=== PATIENT | female | born 1955 | race Caucasian/White ===

== ENCOUNTER → 2016-06-01 | Outpatient (CLI) | payer OTHER ==
[~2016-06-01] MED LIST: ALBUAER19 INH; ATV1 PO; CETI10TA84 PO; CICL160A INH; CYCL10TA6 PO; CYM30 PO; IPRASOL4 INH; NYSS/ MT; POLY335019 PO; PSEU120T2 PO; UMEC1INH INH
[2016-06-01 13:03] LABS: BLOOD UREA NITROGEN 15 mg/dl (7-18); BUN/CREATININE RATIO 16.6 (10-20); CALCIUM 8.8 mg/dl (8.5-10.1); CARBON DIOXIDE 30 mmol/L (21-32); CHLORIDE 104 mmol/L (98-107); CHOLESTEROL 237 mg/dl (0-200); CREATININE 0.93 mg/dl (0.60-1.20); GLUCOSE 105 mg/dl (70-99); SODIUM 139 mmol/L (136-145); TRIGLYCERIDES 212 mg/dl (0-150); VERY LOW DENSITY LIPOPROT CALC 42 mg/dl
[2016-06-01 13:06] LABS: CHOLESTEROL/HDL RATIO 5.4; HDL CHOLESTEROL 44 mg/dl; LDL CHOLESTEROL CALCULATED 151 mg/dl
== END | disposition home or self-care (01) ==
LOC: C.LABBFT 09:53
PROVIDERS: ATTEND Family Medicine
DX: R63.5 Abnormal weight gain (principal); E78.5 Hyperlipidemia, unspecified

== ENCOUNTER → 2016-06-18 | Outpatient (CLI) | payer OTHER ==
--- NOTE | 2016-06-20 01:46 | PULMONARY FUNCTION TEST ---
INTERPRETATION Spirometry: FEV1/FVC ratio at 65. Suggest obstructive ventilatory disease but FEV1 at 88% notes mild obstruction. Lung volumes: Within normal limits. Diffusion capacity: Within normal limits.
== END | disposition home or self-care (01) ==
LOC: C.RC 10:43
PROVIDERS: ATTEND Internal Medicine Critical Care Medicine
DX: C34.91 Malignant neoplasm of unspecified part of right bronchus or lung (principal); J42 Unspecified chronic bronchitis; Z87.09 Personal history of other diseases of the respiratory system

== ENCOUNTER → 2016-06-25 | Outpatient (CLI) | payer OTHER | END | disposition home or self-care (01) | LOC: C.MAMM 10:20 | PROVIDERS: ATTEND Family Medicine | DX: M81.0 Age-related osteoporosis without current pathological fracture (principal); M85.851 Other specified disorders of bone density and structure, right thigh; M85.852 Other specified disorders of bone density and structure, left thigh ==

== ENCOUNTER → 2016-08-05 | Outpatient (CLI) | payer OTHER ==
--- NOTE | 2016-08-06 13:18 | MAMMOGRAPHY REPORT ---
BILATERAL DIGITAL SCREENING MAMMOGRAM TOMOSYNTHESIS WITH CAD: 08/05/2016 CLINICAL HISTORY: Routine screening. TECHNIQUE: Breast tomosynthesis in addition to standard 2D mammography was performed. Current study was also evaluated with a Computer Aided Detection (CAD) system. COMPARISON: Comparison is made to exams dated: 10/21/2012 mammogram, 12/15/2010 mammogram, 12/06/2009 [facility], 05/25/2008, and 11/26/2006. BREAST COMPOSITION: There are scattered areas of fibroglandular density in both breasts. FINDINGS: The parenchymal pattern is similar to prior exams. No developing mass, architectural dis tortion or cluster of suspicious microcalcifications is seen in either breast. IMPRESSION: ACR BI-RADS CATEGORY 2: BENIGN There is no mammographic evidence of malignancy. A 1 year screening mammogram is recommended. The p atient will receive written notification of the results. Approximately 10% of breast cancers are not detected with mammography. A negative mammographic repor t should not delay biopsy if a clinically suggestive mass is present. Jocelyn Zavaleta M.D. ay/:08/05/2016 17:12:51 Manager Cardiac Cath: Hetal COTTON(R)(M), [facility] letter sent: Normal 1/2 BI-RADS Code: ACR BI-RADS Category 2: Benign
== END | disposition home or self-care (01) ==
LOC: C.MAMM 15:10
PROVIDERS: ATTEND Family Medicine
DX: Z12.31 Encounter for screening mammogram for malignant neoplasm of breast (principal)

== ENCOUNTER → 2016-08-11 | Outpatient (CLI) | payer OTHER ==
--- NOTE | 2016-08-11 14:41 | DIAGNOSTIC IMAGING REPORT ---
CHEST CT WITHOUT CONTRAST CT DOSE: 230.22 mGycm HISTORY: Pulmonary nodule X TECHNIQUE: Multiaxial CT images of the chest were performed without contrast. COMPARISON: 02/14/2016 FINDINGS: Unchanged exam compared to the prior study. Postoperative changes are again noted. Micronodularity right lung base is nonprogressive. There are no new or interval findings. There is no significant hilar or mediastinal adenopathy. IMPRESSION: Unchanged evaluation of the chest with unchanging postoperative changes as well as stable minimal right basilar micronodularity. A 6-9 month follow-up is suggested Electronically signed by: Rajinder Bearden M.D. 08/11/2016 2:40 PM Dictated Date/Time: 08/11/2016 2:36 PM
== END | disposition home or self-care (01) ==
LOC: C.CTS 14:03
PROVIDERS: ATTEND Surgery
DX: C34.91 Malignant neoplasm of unspecified part of right bronchus or lung (principal)

== ENCOUNTER → 2016-10-02 | Outpatient (CLI) | payer OTHER ==
[2016-10-02 17:27] LABS: BLOOD UREA NITROGEN 22 mg/dl (7-18)
== END | disposition home or self-care (01) ==
LOC: C.LABBC 14:34
PROVIDERS: ATTEND Psychiatry & Neurology Neurology
DX: Z00.00 Encounter for general adult medical examination without abnormal findings (principal)

== ENCOUNTER → 2016-10-05 | Outpatient (CLI) | payer OTHER ==
[~2016-10-05] MED LIST changes: +GADAVIST IV PRN
--- NOTE | 2016-10-05 15:39 | DIAGNOSTIC IMAGING REPORT ---
MRI OF THE BRAIN COMBO CLINICAL HISTORY: Dyspnea. COMPARISON STUDY: CT of the brain dated 05/30/2010. TECHNIQUE: MRI of the brain was performed utilizing various T1 and T2-weighted sequences in the axial, sagittal, and coronal planes. Contrast-enhanced sequences were acquired following the administration of 7 cc of Gadavist. FINDINGS: Brain parenchyma: There is mild subcortical and periventricular microangiopathic disease. There is no hemorrhage or mass effect. There is no restricted diffusion to suggest acute ischemia. No enhancing mass lesion is identified on the postcontrast images. Larry-white matter differentiation is preserved. No extra-axial fluid collection is seen. Minimal cerebellar tonsillar ectopia is noted. Ventricles, sulci, and cisterns: Normal in configuration. Pituitary and sella: Unremarkable. Intracranial vasculature: Normal flow voids are maintained at the skull base. Orbits: The bony orbits are grossly intact. Orbital contents are normal in appearance. Sinuses and mastoids: Clear. Calvarium: Unremarkable. Cervical cord: Partially visualized cervical spinal cord is normal in morphology and signal intensity. IMPRESSION: No acute intracranial abnormality. Electronically signed by: Sandor Britton M.D. 10/05/2016 3:37 PM Dictated Date/Time: 10/05/2016 3:24 PM
== END | disposition home or self-care (01) ==
LOC: C.MRI 14:20
PROVIDERS: ATTEND Psychiatry & Neurology Neurology
DX: R06.00 Dyspnea, unspecified (principal)

== ENCOUNTER → 2016-12-03 | Outpatient (CLI) | payer OTHER ==
[~2016-12-03] VITALS: Ht 154.9 cm; Wt 75.5 kg
[~2016-12-03] MED LIST changes: -GADAVIST IV PRN
[2016-12-03 15:08] VITALS: BP 127/84; PULSE 112; Ht 154.9 cm; Wt 75.5 kg
== END | disposition home or self-care (01) ==
LOC: C.NEUR 14:53
PROVIDERS: ATTEND Internal Medicine Pulmonary Disease
DX: G47.33 Obstructive sleep apnea (adult) (pediatric) (principal); G47.19 Other hypersomnia

== ENCOUNTER → 2016-12-22 | Outpatient (CLI) | payer OTHER ==
--- NOTE | 2016-12-22 10:52 | DIAGNOSTIC IMAGING REPORT ---
LEFT VENOUS DOPP LOWER EXT UNILAT CLINICAL HISTORY: 61 years-old Female presenting with DVT, PRIMARY CA RT LUNG. TECHNIQUE: Real-time grayscale and color and spectral Doppler ultrasound imaging of the veins of the left lower extremity was performed. Compression and augmentation were also utilized. COMPARISON: None. FINDINGS: Left: Common femoral vein: Patent. Femoral vein: Patent. Greater saphenous vein: Patent. Popliteal vein: Patent. Calf veins: Patent. Other: None. IMPRESSION: No evidence of deep venous thrombosis. Electronically signed by: Jermain Braxton M.D. 12/22/2016 10:50 AM Dictated Date/Time: 12/22/2016 10:50 AM
== END | disposition home or self-care (01) ==
LOC: C.ULTR 10:21
PROVIDERS: ATTEND Internal Medicine Critical Care Medicine
DX: C34.91 Malignant neoplasm of unspecified part of right bronchus or lung (principal); I82.409 Acute embolism and thrombosis of unspecified deep veins of unspecified lower extremity

== ENCOUNTER → 2016-12-30 | Outpatient (CLI) | payer OTHER ==
--- NOTE | 2016-12-31 06:13 | PAP/PSG TECHNICIAN REPORT ---
[facility] Powered Bridge Specialist Polysomnogram Report Study name: None Report date: 12/31/2016 Study date: 12/30/2016 Referring Physician: Dr. Spain Name: ADITI LUCIANO Interpreting Physician: Dion Allen M.D. Date of : 1955 Powered Bridge Specialist: Tyler Rabago RPSGT. Sex: Female Age: 61 StudyType: PSG Weight: 166 lbs Height: 61 years, Height 5' 1" BMI: 31.36 Medications: AERO CHAMBER PLUS, CALCIUM 600 MG, CYCLOBENZAPRINE HCL 10 MG, CYMBALTA 30 MG, FISH OIL, IPRATROPIUM-ALBUTEROL 0.5-2.5, LORAZEPAM 1 MG Patient History PATIENT HAS HISTORY OF EXHAUSTION, DAYTIME SLEEPINESS AND SNORING. SHE SAID THAT SHE USUALLY TAKES SEVERAL NAPS DURING THE DAY. SHE IS HERE TODAY FOR AN EVALUATION FOR ASHLEY. ESS = 12 RM 6 Parameters Monitored NPSG: E1-M2, E2-M1, Fp1-M2, Fp2-M1, F3-M2, F4-M2, F4-M1, C3-M2, C4-M2, C4-M1, O1-M2, O2-M2, O2-M1, T3-M2, T4-M1, P3-M2, P4-M1, CHIN1, CHIN2, HR, EKG, Legs, PFLOW, SNOR, FLOW, CFLOW, Tidal Volume, THOR, ABDO, SpO2, PLTH, CPRESS, ETCO2 Wave, ETCO2, pH Sleep Architecture Sleep Stages Time at Lights Off 10:27:30 PM STAGES Time (min.) TST (%) Time at Lights On 5:50:00 AM Wake 34.5 -- Total Recording Time (TRT) 443.00 min. N1 24.0 6 Total Sleep Period (TSP) 431.0 min. N2 303.5 74 Total Sleep Time (TST) 408.0min. N3 80.5 20 Awake Time 34.5 min. REM 0.0 0 Wake after Sleep Onset 23.0 min. Sleep Efficiency (SE) 92 % Sleep Onset Latency (GUTIERREZ) 11.5 min. Number of Stage 1 Shifts None Awakenings 23 Stage Changes 95 Number of REM periods N/A REM 0.0 0 REM Latency NONE min. NREM 408.0 100 Body Position Analysis Supine Right Left Side Prone Vertical Total Sleep Time (min.) 442.5 0.0 0.0 0.00 0.0 0.0 Total Sleep Time (%) 100% 0% 0% 0 0% N/A% Total Sleep Time REM (min.) 0.0 0.0 0.0 None 0.0 0.0 Total Sleep Time NREM (min.) 408.0 0.0 0.0 None 0.0 0.0 Intermittent Wake (min.) 34.5 0.0 0.0 None 0.0 0.0 Total Sleep Period (%) 100% None None None None None Arousals Myoclonus (PLM) * Events Count Index Events Count Index Spontaneous 25 4 Events Awake (PLMW) 23 40.0 Respiratory 2 0.3 Events Asleep w/ Arousal (PLMA) 14 2.1 PLM 13 2 Events Asleep w/o Arousal (PLMS) 156 22.9 Snoring 13 2 Total Asleep 170 25.0 Total 52 8 Total 193 26 Respiratory Analysis * CA OA MA CH H RERA Total Count 0 0 0 0 20 1 20 Index 0.0 0.0 0.0 0 2.9 0 3.1 Mean Duration 0.0 0.0 0.0 0.00 15.8 16.0 15.8 Longest Duration 0.0 0.0 0.0 0.00 0.0 16.0 27.6 Respiratory Event Summary Total Supine ~Supine Right Left Prone REM NREM Apneas Count 0 0 N/A N/A N/A N/A N/A 0 Index 0.0 0 N/A N/A N/A N/A N/A 0 Hypopneas (4% Desat) Count 20 20 N/A N/A N/A N/A N/A 20 Index 2.9 2.9 N/A N/A N/A N/A N/A 2.9 Apneas & All Hypopneas Count 20 20 N/A N/A N/A N/A N/A 20 Index 2.9 3 N/A N/A N/A N/A N/A 2.9 Respiratory Events (Actuarial Consultant+All Hyp+RERA) Count 20 21 N/A N/A N/A N/A N/A 20 Index 3.1 3 N/A N/A N/A N/A N/A 3.1 Respiratory Related Arousal Count 2 21 N/A N/A N/A N/A N/A 2 Index 0.3 0 N/A N/A N/A N/A N/A 0 Snoring Analysis Supine Right Left Prone REM NREM Total Snore duration 75.4 min Snores count 3,340 N/A N/A N/A N/A 3,340 3,340 Snore mean duration 1.4 Sec Snores index 491 N/A N/A N/A N/A 491.2 491.2 TST with snoring (%) 18.5% Desaturation Event Summary: Minimum %SpO2 Event Count Mean/Min/Max Duration(sec.) Desaturation Index % Time In Bed > 90 20 22.7 / 10.0 / 56.5 11.0 24.5 86 - 90 6 23.0 / 10.5 / 43.4 1.1 75.5 81 - 85 0 N/A 0.0 0.0 76 - 80 0 N/A 0.0 0.0 71 - 75 0 N/A 0.0 0.0 66 - 70 0 N/A 0.0 0.0 61 - 65 0 N/A 0.0 0.0 56 - 60 0 N/A 0.0 0.0 51 - 55 0 N/A 0.0 0.0 < 50 0 N/A 0.0 0.0 Total REM NREM Awake <50% 0.0 min. 0.0 min. 0.0 min. 0.0 min. 51 - 60% 0.0 min. 0.0 min. 0.0 min. 0.0 min. 61 - 70% 0.0 min. 0.0 min. 0.0 min. 0.0 min. 71 - 80% 0.0 min. 0.0 min. 0.0 min. 0.0 min. 81 - 90% 333.9 min. 0.0 min. 313.9 min. 20.0 min. 91 - 100% 108.6 min. 0.0 min. 94.1 min. 14.5 min. Average 90 0 90 90 Minimum SpO2 86 N/A 86 86 Desaturation Event Index 3.0 0.0 3.2 0.0 # Desat. Events below 89% 11 N/A 11 N/A Time(%) with Saturation below 89% 17.7 0.0 16.1 1.6 Time(min.) with Saturation below 89% 78.5 0.0 71.3 7.2 Time (mins) REM (mins) NREM (mins) % of TST SpO2 Below 90% 20 N/A N20 45.6 SpO2 Below 88% 5 0 0 6 Heart Rate Analysis Min (bpm) Max (bpm) Average (bpm) Awake 65 89 76 NREM 63 86 72 REM N/A N/A N/A Overall 63 86 72 Supplemental O2 Values Minimum O2 level: None Value Start Time End Time Powered Bridge Specialist Comments Ms. Luciano slept in the supine positions. No cardiac arrhythmia noted. Leg movements noted. No bruxism noted. Snoring was noted and scored as a 4 on a scale of 1 through 5. (0=no snoring, 5=snoring loud enough to be heard through a closed door or down the [address]ers way) Ms. Donaldson awoke to use the restroom 0 times during the night. Ms. Luciano stated I slept as well as I do when I am in my own bed. No REM noted. The final report will be interpreted and signed by a sleep physician. The completed physician report will then be placed in the patient medical record. Therapy (cm H2O) 0 TIB (min.) 442.5 TST (min.) 408.0 Sleep Onset (min.) 11.5 REM Onset From Sleep (min.) NONE Sleep Efficiency % 92 Wakefulness (%) 8 Wakefulness (min.) 34.5 NREM 1 (%) 6 NREM 1 (min.) 24.0 NREM 2 (%) 74 NREM 2 (min.) 303.5 NREM 3 (%) 20 NREM 3 (min.) 80.5 REM (%) 0 REM (min.) 0.0 # Arousals 52 Arousal Index 8 # Snore 3,340 Snore Index 491.2 AHI 2.9 AHI Supine 3 AHI Non-Supine N/A NREM AHI 2.9 REM AHI N/A RDI 3.1 # Obstructive Apnea 0 # Central Apnea 0 # Mixed Apnea 0 # Hypopneas 20 RERAs 1 Total Respiratory Events 23 Time Below SpO2 89% (min.) 71.3 Mean NREM SpO2 (%) 90 Mean REM SpO2 (%) N/A Mean Sleep SpO2 (%) 90 Min NREM SpO2 (%) 86 Min REM SpO2 (%) N/A Position Supine (min.) 442.5 Position Non-supine (min.) 0.0 LM Index Sleep 25.0 LM Index NREM 25.0 LM Index REM N/A Mean Heart Rate (bpm) 72 Min Heart Rate (bpm) 63
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
== END | disposition home or self-care (01) ==
LOC: C.NEUR 20:00
PROVIDERS: ATTEND Internal Medicine Pulmonary Disease
DX: G47.33 Obstructive sleep apnea (adult) (pediatric) (principal)

== ENCOUNTER → 2017-01-01 | Outpatient (CLI) | payer OTHER ==
[2017-01-01 12:48] LABS: HEMATOCRIT 43.4 % (37-47); MEAN CELL VOLUME 90.8 fL (80-100); MEAN CORPUSCULAR HEMOGLOBIN 30.1 pg (25-34); MEAN CORPUSCULAR HGB CONC 33.2 g/dl (32-36); MEAN PLATELET VOLUME 10.1 fL (7.4-10.4); PLATELET COUNT 284 K/uL (130-400); RED BLOOD COUNT 4.78 M/uL (4.2-5.4); WHITE BLOOD COUNT 6.84 K/uL (4.8-10.8)
[2017-01-01 12:57] LABS: ALT/SGPT 43 U/L (12-78); BLOOD UREA NITROGEN 11 mg/dl (7-18); BUN/CREATININE RATIO 11.7 (10-20); CALCIUM 9.4 mg/dl (8.5-10.1); CARBON DIOXIDE 26 mmol/L (21-32); CHLORIDE 107 mmol/L (98-107); CREATININE 0.93 mg/dl (0.60-1.20); GLUCOSE 100 mg/dl (70-99); SODIUM 142 mmol/L (136-145)
[2017-01-01 13:01] LABS: ALB/GLOB RATIO 1.1 (0.9-2); ALKALINE PHOSPHATASE 107 U/L (45-117); AST/SGOT 31 U/L (15-37)
[2017-01-01 14:21] LABS: LYME DISEASE AB IGM NEG (NEG)
[2017-01-01 14:22] LABS: LYME DISEASE AB IGG NEG (NEG)
== END | disposition home or self-care (01) ==
LOC: C.LABBFT 10:18
PROVIDERS: ATTEND Physician Assistant
DX: Z00.00 Encounter for general adult medical examination without abnormal findings (principal); T14.8 Other injury of unspecified body region; W57.XXXA Bitten or stung by nonvenomous insect and other nonvenomous arthropods, initial encounter

== ENCOUNTER → 2017-03-16 | Outpatient (CLI) | payer OTHER ==
--- NOTE | 2017-03-16 09:51 | DIAGNOSTIC IMAGING REPORT ---
(CHEST) THORAX WITHOUT CLINICAL HISTORY: C34.90 Adenocarcinoma of lung COMPARISON STUDY: 08/11/2016 CT DOSE: 256.55 mGy.cm TECHNIQUE: CT of the thorax was performed from the thoracic inlet to the lung bases. Images are reviewed in the axial, sagittal, and coronal planes. IV contrast was not administered for this examination. A dose lowering technique was utilized adhering to the principles of ALARA. FINDINGS: Thyroid: Imaged portions of the thyroid gland are normal in appearance. Thoracic aorta: The thoracic aorta is normal in course and caliber, noting standard 3 vessel arch anatomy. Heart: The heart is normal in size and configuration, without pericardial effusion. Lungs and pleural spaces: No pleural effusions are visualized. Postsurgical changes are present within the right hemithorax. There are areas of postsurgical scarring. There are no suspicious pulmonary masses. Subcentimeter perifissural nodules remain stable Mediastinum: There is no mediastinal lymphadenopathy. Duyen: There is no evidence of pathologic hilar adenopathy given the limitations of a noncontrast study Axilla: There is no evidence of pathologic axillary lymphadenopathy Upper abdomen: Partially visualized upper abdominal viscera is within normal limits. Skeletal structures: There are no lytic or blastic osseous lesions. IMPRESSION: Postsurgical changes with stable areas of scarring. Stable low suspicion subcentimeter perifissural nodules. Electronically signed by: Jacques Rojas M.D. 03/16/2017 9:50 AM Dictated Date/Time: 03/16/2017 9:43 AM
== END | disposition home or self-care (01) ==
LOC: C.CTS 09:31
PROVIDERS: ATTEND Surgery
DX: C34.90 Malignant neoplasm of unspecified part of unspecified bronchus or lung (principal)